=== PATIENT | female | born 1935 | race Hispanic/Latino ===

== ENCOUNTER → 2019-06-20 | Outpatient (CLI) | payer MEDICARE | END | disposition home or self-care (01) | LOC: RAH 13:16 | PROVIDERS: ATTEND Family Medicine | DX: R22.42 Localized swelling, mass and lump, left lower limb (principal); R22.41 Localized swelling, mass and lump, right lower limb | CPT/HCPCS: 93970 ==

== ENCOUNTER → 2022-10-18 | Outpatient (CLI) | payer MEDICARE | END | disposition home or self-care (01) | LOC: RAH 14:25 | PROVIDERS: ATTEND Family Medicine | DX: I35.0 Nonrheumatic aortic (valve) stenosis (principal); R06.02 Shortness of breath | CPT/HCPCS: 93306 ==

== ENCOUNTER → 2024-01-29 | Outpatient (CLI) | payer MEDICARE | END | disposition home or self-care (01) | LOC: RAH 13:36 | PROVIDERS: ATTEND Family Medicine | DX: G31.89 Other specified degenerative diseases of nervous system (principal); G83.11 Monoplegia of lower limb affecting right dominant side; R47.81 Slurred speech | CPT/HCPCS: 70551 ==